=== PATIENT | female | born 1935 | race Two or more races ===

== ENCOUNTER 2018-01-04 23:46 | Inpatient (IN) | payer MEDICARE, OTHER ==
[~2018-01-04] VITALS: Ht 160 cm; Wt 80.0 kg
[2018-01-05 00:51] LABS: Basophils # (auto) 0.1 uL; Basophils % (auto) 0.8 % (0.0-2.0); Eosinophils # (auto) 0.3 uL; Hematocrit 44.1 % (36.0-46.0); Hemoglobin 14.9 g/dL (12.2-16.2); Lymphocytes # (auto) 3.2 uL; Lymphocytes % (auto) 36.2 % (10.0-50.0); Mean Corpuscular Hemoglobin 31.8 pg (28.0-32.0); Mean Corpuscular Hgb Conc. 33.7 g/dL (32.0-36.0); Mean Corpuscular Volume 94.2 fL (80.0-100.0); Monocytes # (auto) 0.7 uL; Monocytes % (auto) 7.5 % (0.0-12.0); Neutrophils # (auto) 4.7 uL; Neutrophils % (auto) 52.5 % (37.0-80.0); Nucleated Red Blood Cells % 0.1 %; Platelet Count (auto) 277 10^3/uL (140-450); Red Blood Cells 4.68 10^6/uL (4.0-5.20)
[2018-01-05 01:03] LABS: INR 0.98 (0.9-1.15); Partial Thromboplastin Time 36.9 sec (23.78-33.04); Prothrombin Time 10.5 sec (9.27-12.13)
[2018-01-05 01:05] LABS: Alanine Aminotransferase 22 U/L (13-56); Albumin 3.8 g/dL (3.4-5.0); Anion Gap 10 (5-15); Aspartate Aminotransferase 20 U/L (15-37); Blood Urea Nitrogen 25 mg/dL (7-18); Calcium 8.8 mg/dL (8.5-10.1); Carbon Dioxide 26 mmol/L (21-32); Chloride 107 mmol/L (98-107); GFR African American 65 mL/min; GFR Non-African American 54 mL/min; Glucose 145 mg/dL (74-106); Magnesium 2.4 mg/dL (1.6-2.6); Potassium 3.3 mmol/L (3.5-5.1); Sodium 143 mmol/L (136-145)
[2018-01-05 01:10] LABS: Alkaline Phosphatase 133 U/L (45-117); Bilirubin, Total 0.4 mg/dL (0.2-1.0); Total Protein 8.4 g/dL (6.4-8.2)
[2018-01-05 01:40] LABS: Urine Bacteria FEW /hpf (None Seen); Urine Blood Negative /uL (Negative); Urine Mucus FEW (None Seen); Urine Specific Gravity 1.007 (1.001-1.035); Urine WBC 1 /hpf (0 - 5)
[2018-01-05] MEDS ORDERED: DEXTROSE (50%) 50ML SYRG IV PRN (04:00)
[2018-01-05] MEDS ORDERED: ONDANSETRON HCL 4 MG/2 ML VIAL IV PRN (04:00)
[2018-01-05] MEDS ORDERED: LORazepam 0.5 MG TAB PO PRN (04:00)
[2018-01-05] MEDS ORDERED: HYDROcodone-ACET 5/325MG TAB PO PRN (04:00)
[2018-01-05] MEDS ORDERED: ACETAMINOPHEN 500 MG TAB PO PRN (04:00)
[2018-01-05] MEDS ORDERED: MORPHINE SULF INJ 2 MG/ML SYRINGE 1ML IV PRN (05:15)
[2018-01-05] MEDS ORDERED: NITROGLYCERIN 0.4 MG SL TAB SL PRN (05:15)
[2018-01-05] MEDS ORDERED: PROMETHAZINE HCL 25 MG/ML 1ML IV ONE (06:30)
[2018-01-05] MEDS: InsuLIN REG 1unit/0.01ml Soln (100units/ml) SC SCH ×4 (06:56→21:35)
[2018-01-05] MEDS: LEVOTHYROXINE SODIUM 50 MCG TAB PO SCH (06:56)
[2018-01-05] MEDS: ACCU-CHEK COMFORT CURVE STRIP VI SCH ×4 (06:57→21:35)
[2018-01-05] MEDS ORDERED: LOSA100T27 PO (08:23)
[2018-01-05] MEDS ORDERED: ATOR20TA50 PO (08:23)
[2018-01-05] MEDS ORDERED: APIX5TAB OR (08:23)
[2018-01-05] MEDS ORDERED: NIFE60TA53 PO (08:23)
[2018-01-05] MEDS ORDERED: METO-169 PO (08:23)
[2018-01-05 08:30] VITALS: BP 152/72
[2018-01-05] MEDS ORDERED: CARVEDILOL 12.5 MG TAB PO SCH (10:00)
[2018-01-05] MEDS: APIXABAN 5 MG TAB PO SCH ×2 (10:03→21:34)
[2018-01-05] MEDS: FUROSEMIDE 40 MG TAB PO SCH (10:04)
[2018-01-05] MEDS: LOSARTAN POTASSIUM 50 MG TAB PO SCH (10:05)
[2018-01-05] MEDS: METOPROLOL SUCCINATE XL 50 MG TAB PO SCH (10:08)
[2018-01-05] MEDS ORDERED: ASPirin 81 mg TAB PO ONE (12:30)
[2018-01-05] MEDS ORDERED: POTASSIUM CHL 20 Meq TABLET PO ONE (12:45)
[2018-01-05 12:58] VITALS: BP 137/64
[2018-01-05] MEDS ORDERED: NIFEdipine ER 30 MG TAB PO ONE (14:15)
[2018-01-05 16:54] VITALS: BP 116/66
[2018-01-05 21:16] VITALS: BP 142/69
[2018-01-05] MEDS: ATORVASTATIN 20 MG TAB PO SCH (21:35)
[2018-01-06 05:34] VITALS: BP 157/86
[2018-01-06] MEDS: ACCU-CHEK COMFORT CURVE STRIP VI SCH ×4 (06:26→21:24)
[2018-01-06] MEDS: LEVOTHYROXINE SODIUM 50 MCG TAB PO SCH (06:26)
[2018-01-06] MEDS: InsuLIN REG 1unit/0.01ml Soln (100units/ml) SC SCH ×4 (06:27→21:24)
[2018-01-06 06:37] LABS: Basophils # (auto) 0 uL; Basophils % (auto) 0.4 % (0.0-2.0); Eosinophils # (auto) 0.3 uL; Eosinophils % (auto) 3.9 % (0.0-7.0); Hematocrit 43.8 % (36.0-46.0); Hemoglobin 15.3 g/dL (12.2-16.2); Lymphocytes # (auto) 2.8 uL; Lymphocytes % (auto) 41.7 % (10.0-50.0); Mean Corpuscular Hemoglobin 32.9 pg (28.0-32.0); Mean Corpuscular Hgb Conc. 34.8 g/dL (32.0-36.0); Mean Corpuscular Volume 94.4 fL (80.0-100.0); Monocytes # (auto) 0.7 uL; Monocytes % (auto) 10.1 % (0.0-12.0); Neutrophils # (auto) 2.9 uL; Neutrophils % (auto) 43.9 % (37.0-80.0); Nucleated Red Blood Cells % 0.1 %; Platelet Count (auto) 263 10^3/uL (140-450); Red Blood Cells 4.64 10^6/uL (4.0-5.20); Red Cell Distribution Width 14.6 % (11.8-14.3); White Blood Cell 6.7 10^3/uL (4.4-10.8)
[2018-01-06 06:45] LABS: BUN/Creatinine Ratio 24.5; Calcium 9.2 mg/dL (8.5-10.1); Potassium 3.5 mmol/L (3.5-5.1)
[2018-01-06 08:30] VITALS: BP 146/78
[2018-01-06] MEDS ORDERED: ADENOSINE 66 MG in GIVE UN-DILUTED 0 ML IV STA (08:32)
[2018-01-06] MEDS: NIFEdipine ER 30 MG TAB PO SCH (10:00)
[2018-01-06 10:07] VITALS: BP 174/70
[2018-01-06] MEDS: APIXABAN 5 MG TAB PO SCH ×2 (11:38→21:24)
[2018-01-06] MEDS: ASPirin 81 mg TAB PO SCH (11:38)
[2018-01-06] MEDS: FUROSEMIDE 40 MG TAB PO SCH (11:39)
[2018-01-06] MEDS: METOPROLOL SUCCINATE XL 50 MG TAB PO SCH (11:40)
[2018-01-06] MEDS: LOSARTAN POTASSIUM 50 MG TAB PO SCH (11:41)
[2018-01-06 12:30] VITALS: BP 152/84
[2018-01-06 16:27] VITALS: BP 109/61
[2018-01-06] MEDS: ATORVASTATIN 20 MG TAB PO SCH (21:24)
[2018-01-06 22:00] VITALS: BP 158/85
[2018-01-07 04:57] VITALS: BP 144/86
[2018-01-07] MEDS: LEVOTHYROXINE SODIUM 50 MCG TAB PO SCH (06:26)
[2018-01-07] MEDS: ACCU-CHEK COMFORT CURVE STRIP VI SCH ×2 (06:26→12:11)
[2018-01-07] MEDS: InsuLIN REG 1unit/0.01ml Soln (100units/ml) SC SCH ×2 (06:27→11:30)
[2018-01-07 09:00] VITALS: BP 178/78
[2018-01-07] MEDS: APIXABAN 5 MG TAB PO SCH (10:20)
[2018-01-07] MEDS: FUROSEMIDE 40 MG TAB PO SCH (10:21)
[2018-01-07] MEDS: ASPirin 81 mg TAB PO SCH (10:21)
[2018-01-07] MEDS: METOPROLOL SUCCINATE XL 50 MG TAB PO SCH (10:22)
[2018-01-07] MEDS: NIFEdipine ER 30 MG TAB PO SCH (10:24)
[2018-01-07] MEDS: LOSARTAN POTASSIUM 50 MG TAB PO SCH (10:25)
[2018-01-07] MEDS ORDERED: cloNIDine HCL 0.1 MG TAB PO ONE (11:45)
[2018-01-07 13:00] VITALS: BP 197/103
== END 2018-01-07 14:52 | disposition home or self-care (01) | DRG 291 ==
LOC: ER 23:57 → TELE 23:58 → TELE-EAST 01-05 07:37
PROVIDERS: ADMIT Nurse Practitioner Family; ATTEND Family Medicine
DX: I13.0 Hypertensive heart and chronic kidney disease with heart failure and stage 1 through stage 4 chronic kidney disease, or unspecified chronic kidney disease (principal); I50.43 Acute on chronic combined systolic (congestive) and diastolic (congestive) heart failure; R07.89 Other chest pain; E87.6 Hypokalemia; N18.9 Chronic kidney disease, unspecified; E03.9 Hypothyroidism, unspecified; E11.22 Type 2 diabetes mellitus with diabetic chronic kidney disease; E78.00 Pure hypercholesterolemia, unspecified; E78.5 Hyperlipidemia, unspecified; I48.91 Unspecified atrial fibrillation; Z90.710 Acquired absence of both cervix and uterus; Z79.84 Long term (current) use of oral hypoglycemic drugs
CPT/HCPCS: 36415; 71045; 78452; 80048; 80053; 81001; 82962; 83036; 83735; 83880; 84443; 84484; 85025; 85379; 85610; 85730; 93005; 93017; 93306; 94761; J0153; J1815